=== PATIENT | male | born 1950 | race Asian ===

== ENCOUNTER 2016-12-29 13:55 | Inpatient (IN) | payer BC, OTHER ==
[~2016-12-29] VITALS: Ht 162.6 cm; Wt 73.6 kg
--- NOTE | 2016-12-29 14:17 | NUR ---
PT CAME TO ED TODAY W/ COMPLAINT OF LEFT SIDED WEAKNESS/NUMBNESS AND RIGHT LEG WEAKNESS. PER PT, HE BEGAN TO HAVE NUMBNESS AND TINGLING TO LEFT ARM AND LEG 5 DAYS AGO. HE WENT TO HIS PMD, WHO SENT HIM TO URGENT CARE AND GAVE HIM A REFERRAL TO SEE A NEUROLOGIST. PT ALSO WAS GIVEN AN RX FOR GABAPENTIN. PT REPORTS NUMBNESS AND WEAKNESS HAS GOTTEN WORSE AND THAT HE IS NOW HAVING TROUBLE AMBULATING. PT NOTED TO HAVE LEFT SIDED WEAKNESS, UNABLE TO LIFT LEFT LEG AGAINST GRAVITY AND SLIGHT LEFT ARM DRIFT NOTED. NO FACIAL DROOP NOTED. SPEECH IS CLEAR, HOWEVER FAMILY MEMBER WITH PT STATES THAT PT'S SPEECH DOES SOUND DIFFERENT TO HIM. PT A&O X 4, ANSWERING ALL QUESTIONS APPROPRIATELY. BREATHING EVEN AND UNLABORED. MSE COMPLETED BY DR ARNDT.
--- NOTE | 2016-12-29 14:20 | NUR ---
PT TAKEN TO AND FROM CT VIA [facility].
--- NOTE | 2016-12-29 14:27 | NUR ---
LAB AT BEDSIDE FOR BLOOD DRAW.
--- NOTE | 2016-12-29 14:37 | NUR ---
RADIOLOGY AT BEDSIDE FOR CXR.
--- NOTE | 2016-12-29 14:44 | NUR ---
REPORT GIVEN TO CALISTA Gray RN, AND CARE ENDORSED FOR THIS PT.
[2016-12-29 14:45] LABS: BASOPHIL % 0.4 % (0-2); PLATELET COUNT 201 x10^3mcL (130-400); RED CELL DISTRIBUTION WIDTH 12.7 % (11.5-14.5)
--- NOTE | 2016-12-29 14:49 | NUR ---
PT RETURNED TO ROOM, PT AWAKE AND ALERT. REMAINS ON CM.
[2016-12-29 15:04] LABS: CALCIUM 8.8 mg/dL (8.5-10.1); CARBON DIOXIDE 29.7 mmol/L (21-32); CHLORIDE SERUM 103 mmol/L (98-107); CREATININE SERUM 0.8 mg/dL (0.7-1.3); GFR1 > 60 mL/min; GLUCOSE SERUM 161 mg/dL (74-106); SODIUM SERUM 140 mmol/L (136-145)
[2016-12-29 15:15] LABS: microscopic required? YES; urine erythrocyte TRACE (NEGATIVE)
[2016-12-29 15:16] LABS: ALBUMIN 3.9 g/dL (3.4-5.0); ALKALINE PHOSPHATASE 54 U/L (46-116); ALT/SGPT 19 U/L (16-63); AMYLASE 60 U/L (25-115); AST/SGOT 8 U/L (15-37); BILIRUBIN TOTAL 0.3 mg/dL (0.20-1.00); HDL CHOLESTEROL 59 mg/dL (40-60); LIPASE 188 IU/L (73-393); MAGNESIUM 1.8 mg/dL (1.8-2.4); T4(THYROXINE) 8.1 ug/dL (4.7-13.3); TOTAL PROTEIN, SERUM 7.3 g/dL (6.4-8.2)
[2016-12-29 15:19] LABS: CHOLESTEROL 121 mg/dL (<200)
--- NOTE | 2016-12-29 15:22 | NUR ---
DR ARNDT SPOKE WITH PT REGUARDING PLAN OF CARE.
[2016-12-29] MEDS ORDERED: ASPIR LOW81 MG PO (15:23)
[2016-12-29] MEDS ORDERED: METFORMIN500 M1 PO (15:23)
[2016-12-29] MEDS ORDERED: SIMVASTATIN40 M1 PO (15:23)
[2016-12-29 15:24] LABS: AMPHETAMINE QUAL UR NONE DETECTED (NEG <=1000)
[2016-12-29] MEDS ORDERED: GABAPENTIN300 M4 PO (15:24)
--- NOTE | 2016-12-29 15:52 | NUR ---
PT MEDICATED WITH TYLENOL PO PER ORDERS FOR HEADACHE. PT DENIES ALLERGIES TO MEDICAITONS.
--- NOTE | 2016-12-29 16:17 | NUR ---
CALLED BRYANT AND STATED SHE WILL CALL ME BACK.
--- NOTE | 2016-12-29 16:37 | NUR ---
REPORT GIVEN TO BRYANT MAC TO ASSUME CARE OF PT.
--- NOTE | 2016-12-29 16:51 | NUR ---
PT HAS A WALKING CANE AND I GAVE IT TO HIS DTR (SHE IS WEARING GLASSES)
--- NOTE | 2016-12-29 17:00 | NUR ---
ASSUMED PT. CARE ,PT. AWAKE,ALERT AND ORIENTED. DENIES ANY CHEST PAIN ,NO ACUTE RESP. DISTRESS NOTED. HL PATENT IN LEFT AC. NOTED B/P 168/92 AWARE W/ ORDERS RECIEVED AND CARRIED OUT. WILL CONT. TO MONITOR PT. CALL LIGHT W/ IN REACH.
--- NOTE | 2016-12-29 17:00 | NUR ---
RECEIVED PT FROM ED VIA [facility], CAME IN DUE TO LUE AND LLE WEAKNESS AND NUMBNESS X5 DAYS. AAOX4. DENIES HEADACHE/DIZZINESS. NO FACIAL DROOP. SPEECH IS CLEAR. LEFT HAND MANAGEMENT TECHNICIAN IS WEAKER THAN THE RIGHT. C/O LEFT SIDED WEAKNESS AND MILD NUMBNESS AT THIS TIME. ABLE TO FOLLOW COMMANDS. NO SOB NOTED, ON 2LPM/NC, O2 UOI=797%. DENIES CHEST PAIN/PRESSURE. NSR ON THE MONITOR. DENIES ABDOMINAL DISCOMFORT. IV SITE PATENT AND INTACT. SIDE RAILS UPX2. CALL LIGHT ON REACH. PRIMARY NURSE ABIMAEL AT BEDSIDE
[2016-12-29 17:13] VITALS: BP 168/92
[2016-12-29 17:16] VITALS: Ht 162.6 cm; Wt 73.6 kg
--- NOTE | 2016-12-29 17:40 | NUR ---
SCD APPLIED TO DANIEL. LOWER EXTR.NO ACUTE DISTRESS NOTED.
--- NOTE | 2016-12-29 20:09 | NUR ---
RECEIVED PT FROM AM NURSE IN NO ACUTE DISTRESS. LAYING IN BED COMFORTABLY. A/OX4. RESPONDS APPROPRIATELY. NO FACIAL DROOPING NOTED. TELE #14 SR. DENIES ANY PAIN AT THIS TIME. PULSES PALPABLE AND EVEN. NO EDEMA NOTED. WEAKNESS NOTED TO LUE AND LLE. LUNGS CLEAR ON 2L NC. DENIES SOB. VOIDS FREELY. AMBULATORY WITH CANE. IV INTACT AND PATENT TO LAC. BED IN LOWEST POSITION. CALL LIGHT INSTRUCTIONS REINFORCED. WILL CONT TO MONITOR.
[2016-12-29 21:25] VITALS: BP 120/71
--- NOTE | 2016-12-30 01:20 | NUR ---
LAYING IN BED WITH NO ACUTE DISTRESS NOTED. DENIES ANY NUMBNESS OR TINGLING TO LUE AND LLE. L SIDED WEAKNESS NOTED. DENIES MARQUIS OR DIZZINESS. WILL CONT TO MONITOR.
--- NOTE | 2016-12-30 05:08 | NUR ---
SLEPT PERIODICALLY THROUGHOUT SHIFT. NO SIGNIFICANT CHANGES. REMAINS IN STABLE CONDITION. IV INTACT AND PATENT. BED IN LOWEST POSITION, CALL LIGHT WITHIN REACH. WILL CONT TO MONITOR AND ENDORSE ALL CARE TO ONCOMING NURSE.
[2016-12-30 05:59] VITALS: BP 106/69
[2016-12-30 06:31] LABS: BASOPHIL % 0.4 % (0-2); PLATELET COUNT 188 x10^3mcL (130-400); RED CELL DISTRIBUTION WIDTH 13.2 % (11.5-14.5)
[2016-12-30 06:46] LABS: CALCIUM 8.8 mg/dL (8.5-10.1); CARBON DIOXIDE 20.2 mmol/L (21-32); CHLORIDE SERUM 105 mmol/L (98-107); CREATININE SERUM 0.8 mg/dL (0.7-1.3); GFR1 > 60 mL/min; GLUCOSE SERUM 142 mg/dL (74-106); PHOSPHOROUS 5.4 mg/dL (2.5-4.9); POTASSIUM SERUM 4.2 mmol/L (3.5-5.1); SODIUM SERUM 140 mmol/L (136-145)
--- NOTE | 2016-12-30 07:20 | NUR ---
RECEIVED Pt. AAOX4. RESPIRATIONS EVEN AND UNLABORED, DENIES PAIN/DISCOMFORT AT THIS TIME. NO DISTRESS NOTED. TELE IN PLACE NSR HR 85. IV SALINE LOCKED AT LEFT AC. Pt. REPORTED WEAKNESS AT LLE. Pt INSTRUCTED TO USE CALL LIGHT FOR ASSIST AND KEPT IN REACH. Pt. SON AT BEDSIDE BED LOW/LOCKED.
--- NOTE | 2016-12-30 08:29 | NUR ---
MADE ROUNDS WITH DR. CASTELLON AND MEDICINE TEAM Pt. TO HAVE PT AND DISCUSSED PLAN OF CARE AND AGREED.
[2016-12-30 09:52] VITALS: BP 109/69
--- NOTE | 2016-12-30 10:14 | NUR ---
PT NOTES: [phone] [id number] RN CLEARED PATIENT FOR PHYSICAL THERAPY. PATIENT WAS AGREEABLE WITH PHYSICALA THERAPY. PATIENT WAS RECEIVED IN BED WITH SON PRESENT, TWO RAILS UP. PRECAUTION: FALL S: PATIENT DENIES PAIN BUT REPORTS LEFT UE/LE OF BEING HEAVY. O: ROM: WNL MMT: LEFT UE/LE 4/5 RIGHT UE/LE 5/5 SENSATION: INTACT BED MOBILITY: ROLLING - INDEPENDENT SCOOTING - SBA SUPINE <> SITTING - SBA TRANSFER: SITTING <> STANDING - CGA SITTING BALANCE: GOOD STANDING BALANCE: GOOD AMBULATION: CGA X 460 FEET WITH FWW WITH LEFT HIPHIKING ENDURANCE: GOOD A: ALERT, ORIENTED X 4. TOLERATED PHYSICAL THERAPY. DENIES DIZZINESS. HIPHIKING DURING AMBULATION WAS SIGNIFICANT. WAS GIVEN INSTRUCTIONS WITH PROPER GAIT PATTERN AND WALKER MANEUVERING. HEP WAS DISCUSSED WITH PATIENT AND FAMILY WITH GOOD UNDERSTANDING. MAY BENEFIT FROM PHYSICAL THERAPY TO IMPROVE STRENGTH TO NORMALIZE GAIT. DISPOSITION: PATIENT WAS PLACED BACK TO BED WITH 2 RAILS UP, SON WAS PRESENT, RN WAS NOTIFIED OF FINDINGS, NO APPEARANCE OF DISTRESS, PHONE AND CALL LIGHT WERE WITHING REACH. POC WAS DISCUSSED WITH STRUCTURAL METAL WORKER. P: MAY BENEFIT FROM PHYSICAL THERAPY 3X/WEEK 1. THERA EXERCISES 2. THERA ACTIVITY 3. GAIT TRAINING 4. BALANCE TRAINING PT EVALUATION: 38 MINUTES GAIT TRAININ MINUTES [id number] - CI [id number] - CI TUG - 11
--- NOTE | 2016-12-30 12:29 | NUR ---
NEURO CHECKS DONE NO CHANGES NOTED.
--- NOTE | 2016-12-30 13:36 | NUR ---
Pt. AMBULATING WITH ASSIST OF CANE AT [place]ALL[place]AY STEADY GAIT NOTED.
[2016-12-30 14:30] VITALS: BP 102/64
--- NOTE | 2016-12-30 16:00 | NUR ---
NEUROCHECKS DONE NO CHANGES NOTED.
--- NOTE | 2016-12-30 18:04 | NUR ---
Pt. REPORTED DRYNESS IN THROAT THAT CAUSES HIM TO COUGH AND IS REQUESTING FOR COUGH MEDICATION. NO COUGHING NOTED AT THIS TIME. Pt. CURRENTLY EATING DINNER TRAY GOOD APPETITE NOTED. DR. MUSA MADE AWARE.
[2016-12-30 18:09] VITALS: BP 111/72
--- NOTE | 2016-12-30 18:17 | NUR ---
Pt. AAOX4, DENIES DIZZINESS/HEADACHE WITH CLEAR SPEECH. NO FACIAL DROOP NOTED. RESPIRATIONS EVEN AND UNLABORED. NO DISTRESS AT THIS TIME. DENIES PAIN. IV AT LEFT AC SALINE LOCKED. TELE IN PLACE. LEFT SIDED WEAKNESS STILL NOTED. BED LOW/LOCKED. CALL LIGHT IN REACH. FAMILY AT BEDSIDE.
--- NOTE | 2016-12-30 19:44 | NUR ---
RECEIVED PT FROM AM NURSE IN NO ACUTE DISTRESS. LAYING IN BED COMFORTABLY. A/OX4. RESPONDS APPROPRIATELY. NO FACIAL DROOPING NOTED. TELE #14 SR. DENIES ANY PAIN AT THIS TIME. PULSES PALPABLE AND EVEN. NO EDEMA NOTED.MILD WEAKNESS NOTED TO LUE AND LLE. LUNGS CLEAR ON RA. DENIES SOB. VOIDS FREELY. AMBULATORY WITH CANE. IV INTACT AND PATENT TO LAC. BED IN LOWEST POSITION. CALL LIGHT INSTRUCTIONS REINFORCED. FAMILY AT BEDSIDE, WILL CONT TO MONITOR.
[2016-12-30 20:53] VITALS: BP 113/61
--- NOTE | 2016-12-31 01:00 | NUR ---
LAYING IN BED, NO ACUTE DISTRESS, BED IN LOWEST POSITION, CALL LIGHT WITHIN REACH, WILL CONT TO MONITOR.
--- NOTE | 2016-12-31 05:06 | NUR ---
SLEPT PERIODICALLY THROUGHOUT SHIFT. REMAINS IN STABLE CONDITION, ALL NEEDS MET AND ATTENDED TO. BED IN LOWEST POSITION, CALL LIGHT WITHIN REACH, WILL CONT TO MONITOR AND ENDORSE ALL CARE TO ONCOMING NURSE.
[2016-12-31 05:46] VITALS: BP 113/78
--- NOTE | 2016-12-31 07:28 | NUR ---
RECEIVED Pt. AAOX4. DENIES HEADACHE/DIZZINESS. CLEAR SPEECH NOTED. RESPIRATIONS EVEN AND UNLABORED. DENIES PAIN. NO DISTRESS NOTED. IV AT LEFT AC SALINE LOCKED. Pt. STILL C/O LEFT SIDED WEAKNESS BUT REPORTED IMPROVEMENT WITH STABILITY OF LLE. TELE IN PLACE NSR HR 97. BED LOW/LOCKED. CALL LIGHT IN REACH.
--- NOTE | 2016-12-31 08:15 | NUR ---
MADE ROUNDS WITH DR. CASTELLON AND MEDICINE TEAM. Pt. POSSIBLE DISCHARGE TODAY AND AGREED WITH PLAN OF CARE.
[2016-12-31 08:40] VITALS: BP 118/68
[2016-12-31 08:53] VITALS: BP 91/47
[2016-12-31 09:55] VITALS: BP 98/61
[2016-12-31] MEDS ORDERED: DIOVAN40 MG PO (11:18)
[2016-12-31] MEDS ORDERED: ASPIRIN325 MG PO (11:40)
[2016-12-31 13:03] VITALS: BP 114/69
[2016-12-31 13:24] VITALS: BP 114/69
--- NOTE | 2016-12-31 14:17 | NUR ---
Pt. AAOX4. RESPIRATIONS EVEN AND UNLABORED. DENIES PAIN/DISCOMFORT. DENIES HEADACHE/DIZZINESS. CLEAR SPEECH. NO FACIAL DROOP NOTED. ALL RX AND DISCHARGE INSTRUCTIONS EXPLAINED TO Pt. AND VERBALIZED UNDERSTANDING. IV AT LEFT AC REMOVED WITH CATH INTACT. TELE 14 RETURNED. Pt. LEFT WITH ALL BELONGINGS.
== END 2016-12-31 14:20 | disposition home health service (06) | DRG 65 ==
LOC: ED 13:55 → DU 15:55
PROVIDERS: Emergency Medicine; ADMIT Family Medicine
DX: I63.9 Cerebral infarction, unspecified (principal); G81.94 Hemiplegia, unspecified affecting left nondominant side; D68.69 Other thrombophilia; E11.51 Type 2 diabetes mellitus with diabetic peripheral angiopathy without gangrene; E78.00 Pure hypercholesterolemia, unspecified; I25.10 Atherosclerotic heart disease of native coronary artery without angina pectoris; Z95.1 Presence of aortocoronary bypass graft; Z79.82 Long term (current) use of aspirin; Z79.84 Long term (current) use of oral hypoglycemic drugs; Z68.28 Body mass index [BMI] 28.0-28.9, adult
CPT/HCPCS: 80307; 82962; 83880; 97116-GP; J7030; Q0092

== ENCOUNTER 2017-01-22 11:17 | Emergency (ER) | payer BC, OTHER ==
[~2017-01-22] VITALS: Ht 162.6 cm; Wt 73.9 kg
[~2017-01-22 11:17] MED LIST: ASPIR LOW81 MG PO; ASPIRIN325 MG PO; DIOVAN40 MG PO; GABAPENTIN300 M4 PO; METFORMIN500 M1 PO; SIMVASTATIN40 M1 PO
[2017-01-22 13:45] VITALS: BP 140/80
== END 2017-01-22 13:45 | disposition home or self-care (01) ==
LOC: ED 11:17
DX: R51 Headache (principal); I10 Essential (primary) hypertension; E11.9 Type 2 diabetes mellitus without complications; E78.00 Pure hypercholesterolemia, unspecified
CPT/HCPCS: J1885